=== PATIENT | male | born 1985 | race Caucasian/White ===

== ENCOUNTER → 2016-08-04 | Outpatient (CLI) | payer OTHER, BC ==
[~2016-08-04] MED LIST: AMOX875T3 PO; OPTIRAY 320 IV PRN; OXYC1TAB3 PO
--- NOTE | 2016-08-04 11:42 | DIAGNOSTIC IMAGING REPORT ---
CT ABD WITH IV CONTRAST ONLY (CT) CT DOSE: 152.14 mGy.cm CLINICAL HISTORY: Abdominal trauma. Evaluate for liver laceration. Abdominal pain. TECHNIQUE: The patient was scanned following administration of dilute oral contrast, and in a dynamic helical fashion during intravenous administration of water 20 cc of Optiray 320. COMPARISON STUDY: March 2010 FINDINGS: Visualized portions of the lung bases are unremarkable. There is no free intraperitoneal air. There is a 7 mm subcutaneous capsular hypodensity within the right hepatic lobe. This was not visualized previously. There is no adjacent hemorrhage. The liver appears otherwise unremarkable. No gallbladder abnormalities are visualized. The spleen appears normal. No pancreatic masses are visualized. No adrenal masses are visualized. No renal masses are visualized. Both kidneys enhance are normal fashion. There is no upper abdominal ascites. IMPRESSION: 1. Interval development of a 6 mm subcapsular hypodensity within the right hepatic lobe posterolaterally. As there is no adjacent subcapsular hematoma, this lesion is unlikely to represent the sequela of acute trauma. If the patient has persistent right-sided abdominal pain, a follow-up CT scan in 12 to 24 hours could be] obtained in follow-up. 2. Otherwise unremarkable CT scan of the upper abdomen. Electronically signed by: Manoj Brandon M.D. 08/04/2016 11:40 AM
--- NOTE | 2016-08-05 09:35 | CODING QUERY NO DIAGNOSIS ---
: 1985 TREATMENT RENDERED WITHOUT A DIAGNOSIS To promote full compliance with coding requirements relating to patient care, physician participation is requested in all cases of credit review analyst uncertainty. Please assist us with providing a diagnosis/symptom for the test(s) below: A diagnosis/symptom was not documented on your Order. A valid diagnosis/symptom is required to bill all insurances. Please remember that we are unable to code a diagnosis of rule out, probable, possible, questionable, or suspected. Tests that require a diagnosis: DOS: 08/04/16 * Upper Abdominal CT with Contrast DIAGNOSIS: Provider Signature: Date: Thank you Argenis Vazquez Health Information Management Once completed, please kindly fax back to [phone] For questions please call [phone]
== END | disposition home or self-care (01) ==
LOC: C.CTS 11:09
PROVIDERS: ATTEND Emergency Medicine
DX: R10.30 Lower abdominal pain, unspecified (principal); K76.89 Other specified diseases of liver

== ENCOUNTER 2016-08-05 08:24 | Emergency (ER) | payer OTHER, BC ==
[~2016-08-05] VITALS: Ht 162.6 cm; Wt 51.8 kg
[2016-08-05 08:32] VITALS: TEMP 36.7; Ht 162.6 cm; Wt 51.8 kg
--- NOTE | 2016-08-05 08:48 | EMERGENCY ROOM VISIT NOTE ---
History Report prepared by Shruthi: Gualberto Lang Under the Supervision of: Carolina MartellO. First contact with patient: 08:38 Chief Complaint: ABDOMINAL PAIN Stated Complaint: RIB ADOMINAL PAIN Nursing Triage Summary: Right sided abd pain. Denies n/v/d States fell on the 3rd and has been having pain since. History of Present Illness The patient is a 31 year old male who presents to the Emergency Room with complaints of worsening right-sided abdominal pain that started 2 days ago after he fell at work. The patient says that he tripped on steps and fell with his phone underneath him. The phone went into his right ribs. He has been having this pain ever since. The patient had a CT scan with his primary care physician yesterday, and it was found that the patient has a cyst near his liver but he was not bleeding. The physician told the patient to follow up here in the ED for another CT scan. The patient denies any chest pain, shortness of breath, back pain, or leg pain. He does not take any medications daily. He has not had any surgeries. The patient does not use any tobacco or alcohol products. Source of History: patient Onset: 2 days ago Position: abdomen (right sided) Timing: worsening Associated Symptoms: No SOB, No back pain, No chest pain Note: Associated symptoms: Denies any leg pain. Review of Systems See HPI for pertinent positives & negatives. A total of 10 systems reviewed and were otherwise negative. Past Medical & Surgical Medical Problems: (1) Acute pharyngitis (2) Calculus of ureter (3) Hypertension Family History Digestive disorder Social History Smoking Status: Never Smoker Alcohol Use: none Marital Status: Housing Status: lives with family Occupation Status: employed Current/Historical Medications Scheduled PRN Oxycodone Immediate Rel Tab (Roxicodone Ir), 1-2 TAB PO Q4H PRN for Severe Pain Allergies Coded Allergies: No Known Allergies (Unverified , 08/04/16) Physical Exam Vital Signs Date Time Temp Pulse Resp B/P Pulse Ox O2 Delivery O2 Flow Rate FiO2 08/05/16 11:10 70 13 114/80 99 08/05/16 10:25 80 15 116/66 100 Room Air 08/05/16 08:32 36.7 93 16 115/64 97 Room Air Physical Exam GENERAL: Patient is awake, alert, and in no acute distress. Patient is resting comfortably and showing no signs of anxiety EYES: The conjunctivae are clear. The pupils are round and reactive. EARS, NOSE, MOUTH AND THROAT: The nose is without any evidence of any deformity. Mucous membranes are moist tongue is midline NECK: The neck is nontender and supple. RESPIRATORY: Normal respiratory effort is noted there is no evidence of wheezing rhonchi or rales CARDIOVASCULAR: Regular rate and rhythm noted there no murmurs rubs or gallops normal S1 normal S2 GASTROINTESTINAL: The abdomen is nondistended. There was significant tenderness to palpation in the right upper quadrant. Mild guarding noted in right upper quadrant. BACK: No midline tenderness or or step-off noted range of motion in flexion extension as well as rotation no signs of muscle spasm noted MUSCULOSKELETAL/EXTREMITIES: There is no evidence of gross deformity full range of motion is noted in the hips and shoulders SKIN: There is no obvious evidence of any rash. There are no petechiae, pallor or cyanosis noted. NEUROLOGIC: Patient is awake alert and oriented x3. Medical Decision & Procedures ER Provider Diagnostic Interpretation: CT results as stated below per my review and radiologist interpretation. ABDOMEN AND PELVIS CT WITH IV CONTRAST CT DOSE: 211.16 mGycm HISTORY: Right upper quadrant pain with trauma. TECHNIQUE: Multiaxial CT images of the abdomen and pelvis were performed following the use of intravenous contrast. COMPARISON STUDY: Abdomen and pelvis CT 08/04/2016. FINDINGS: The lung bases are clear. No pneumoperitoneum. No pneumatosis. No fractures within the visualized osseous structures. Stable 6 mm peripheral hypodense lesion within segment 7 of the liver. There is no adjacent subcapsular hematoma. The remaining portions of the liver enhanced normally. The gallbladder, spleen, adrenal glands, and pancreas are unremarkable. No hydronephrosis. No retroperitoneal lymphadenopathy. No pelvic free fluid. Normal bladder. No bowel wall thickening or obstruction. Normal appendix. IMPRESSION: 1. No significant change compared to the prior study. 2. Stable 6 mm peripheral hypodense focus within the posterior segment of the right hepatic lobe. No adjacent subcapsular hematoma. Therefore, this favors a hypodense hepatic lesion rather than a laceration. A follow-up ultrasound can be performed to ensure stability if the patient's symptoms continue to progress. Electronically signed by: Mario Ureña M.D 08/05/2016 10:07 AM Laboratory Results 08/05/16 08:50 Red Blood Count 5.11, Mean Corpuscular Volume 88.6, Mean Corpuscular Hemoglobin 30.3, Mean Corpuscular Hemoglobin Concent 34.2, Mean Platelet Volume 9.8, Neutrophils (%) (Auto) 63.8, Lymphocytes (%) (Auto) 24.8, Monocytes (%) (Auto) 9.4, Eosinophils (%) (Auto) 1.2, Basophils (%) (Auto) 0.6, Neutrophils # (Auto) 3.28, Lymphocytes # (Auto) 1.27, Monocytes # (Auto) 0.48, Eosinophils # (Auto) 0.06, Basophils # (Auto) 0.03 08/05/16 08:50 Test 08/05/16 08:50 White Blood Count 5.13 K/uL (4.8-10.8) Red Blood Count 5.11 M/uL (4.7-6.1) Hemoglobin 15.5 g/dL (14.0-18.0) Hematocrit 45.3 % (42-52) Mean Corpuscular Volume 88.6 fL (80-100) Mean Corpuscular Hemoglobin 30.3 pg (25-34) Mean Corpuscular Hemoglobin Concent 34.2 g/dl (32-36) Platelet Count 221 K/uL (130-400) Mean Platelet Volume 9.8 fL (7.4-10.4) Neutrophils (%) (Auto) 63.8 % Lymphocytes (%) (Auto) 24.8 % Monocytes (%) (Auto) 9.4 % Eosinophils (%) (Auto) 1.2 % Basophils (%) (Auto) 0.6 % Neutrophils # (Auto) 3.28 K/uL (1.4-6.5) Lymphocytes # (Auto) 1.27 K/uL (1.2-3.4) Monocytes # (Auto) 0.48 K/uL (0.11-0.59) Eosinophils # (Auto) 0.06 K/uL (0-0.5) Basophils # (Auto) 0.03 K/uL (0-0.2) RDW Standard Deviation 43.7 fL (36.4-46.3) RDW Coefficient of Variation 13.3 % (11.5-14.5) Immature Granulocyte % (Auto) 0.2 % Immature Granulocyte # (Auto) 0.01 K/uL (0.00-0.02) Urine Color YELLOW Urine Appearance CLEAR (CLEAR) Urine pH 5.5 (4.5-7.5) Urine Specific [place] 1.023 (1.000-1.030) Urine Protein NEG (NEG) Urine Glucose (UA) NEG (NEG) Urine Ketones NEG (NEG) Urine Occult Blood NEG (NEG) Urine Nitrite NEG (NEG) Urine Bilirubin NEG (NEG) Urine Urobilinogen NEG (NEG) Urine Leukocyte Esterase NEG (NEG) Anion Gap 9.0 mmol/L (3-11) Est Creatinine Clear Calc Drug Dose 83.2 ml/min Estimated GFR () 123.3 Estimated GFR (Non- 106.4 BUN/Creatinine Ratio 12.7 (10-20) Calcium Level 9.0 mg/dl (8.5-10.1) Total Bilirubin 2.8 mg/dl (0.2-1) Direct Bilirubin 0.1 mg/dl (0-0.2) Aspartate Amino Transf (AST/SGOT) 27 U/L (15-37) Alanine Aminotransferase (ALT/SGPT) 39 U/L (12-78) Alkaline Phosphatase 74 U/L (45-117) Total Protein 7.6 gm/dl (6.4-8.2) Albumin 4.3 gm/dl (3.4-5.0) Lipase 142 U/L (73-393) Laboratory results per my review. ED Course 0839: The patient was evaluated in room A12B. A complete history and physical examination were performed. 1047: I reevaluated the patient and he is resting comfortably. The patient verbally expressed understanding and agreement of the treatment plan. The patient will be discharged. Medical Decision The patient's history was concerning for traumatic injury Differential diagnosis: Etiologies such as fracture, dislocation, intra-abdominal, pneumothorax, intrathoracic , intracranial, neurologic, as well as other traumatic pathologies were entertained. Nursing notes reviewed. The patient's previous electronic medical records were also reviewed. The patient is a 31-year-old male who presented to the emergency department for an evaluation of right upper abdominal pain. The patient had a fall recently where he landed on his phone and hurt his right upper quadrant. The patient was seen by his primary care physician and had a CAT scan of the abdomen and pelvis ordered. The CAT scan shows some abnormality around the liver but it did not appear to be completely consistent with intra-abdominal bleeding. The patient was seen in the ER and was told to return to the emergency department if his symptoms worsened otherwise follow-up with his family doctor. Pain worsened overnight and the patient presented to the emergency department today. A repeat CAT scan showed no change from the previous CAT scan. At this time I do feel the patient's condition is more likely consistent with abdominal wall contusion. He was encouraged to rest and avoid any strenuous activity. He was encouraged to continue all medications as prescribed. He was encouraged to follow-up with his family doctor for reevaluation but return to the emergency department immediately if symptoms change worsen or the need arises. Otherwise he was encouraged to have an ultrasound of his right upper quadrant to follow the abnormality that was noted on CAT scan. Impression Primary Impression: Blunt abdominal trauma Scribe Attestation The scribe's documentation has been prepared under my direction and personally reviewed by me in its entirety. I confirm that the note above accurately reflects all work, treatment, procedures, and medical decision making performed by me. Departure Information Dispostion Home / Self-Care Prescriptions Oxycodone Immediate Rel Tab (ROXICODONE IR) 5 Mg Tab 1-2 TAB PO Q4H Y for Severe Pain, #24 TAB Prov: West Brown, DO 08/05/16 Referrals No Doctor, Assigned (PCP) Forms HOME CARE DOCUMENTATION FORM, IMPORTANT VISIT INFORMATION, My [facility], Work Instructions Patient Instructions A Signature Page, ED Abd Injury Blunt Benign Additional Instructions Call your family to schedule a follow-up appointment. Rest and avoid any strenuous activity. Continue using Motrin and Tylenol as directed for mild pain.
[2016-08-05] MEDS ORDERED: OPTIRAY 320 IV PRN (09:00)
[2016-08-05 09:02] LABS: BASO % 0.6 %; BASO ABS # 0.03 K/uL (0-0.2); COMPLETE YES; EOS % 1.2 %; HEMATOCRIT 45.3 % (42-52); IG% 0.2 %; LYMPH % 24.8 %; LYMPH ABS # 1.27 K/uL (1.2-3.4); MEAN CELL VOLUME 88.6 fL (80-100); MEAN CORPUSCULAR HEMOGLOBIN 30.3 pg (25-34); MEAN CORPUSCULAR HGB CONC 34.2 g/dl (32-36); MEAN PLATELET VOLUME 9.8 fL (7.4-10.4); MONO % 9.4 %; NEUT % 63.8 %; PLATELET COUNT 221 K/uL (130-400); RED BLOOD COUNT 5.11 M/uL (4.7-6.1); WHITE BLOOD COUNT 5.13 K/uL (4.8-10.8)
[2016-08-05 09:17] LABS: URINE APPEARANCE CLEAR (CLEAR); URINE BILIRUBIN NEG (NEG); URINE COLOR YELLOW; URINE NITRITE NEG (NEG); URINE PH 5.5 (4.5-7.5); URINE SPECIFIC GRAVITY 1.023 (1.000-1.030); UROBILINOGEN NEG (NEG)
[2016-08-05 09:24] LABS: BUN/CREATININE RATIO 12.7 (10-20); CREATININE 0.96 mg/dl (0.60-1.40); POTASSIUM 4.1 mmol/L (3.5-5.1)
[2016-08-05 09:29] LABS: MANUAL MICROSCOPIC REQUIRED? NO; REVIEW REQ? NO
--- NOTE | 2016-08-05 10:08 | DIAGNOSTIC IMAGING REPORT ---
ABDOMEN AND PELVIS CT WITH IV CONTRAST CT DOSE: 211.16 mGycm HISTORY: Right upper quadrant pain with trauma. TECHNIQUE: Multiaxial CT images of the abdomen and pelvis were performed following the use of intravenous contrast. COMPARISON STUDY: Abdomen and pelvis CT 08/04/2016. FINDINGS: The lung bases are clear. No pneumoperitoneum. No pneumatosis. No fractures within the visualized osseous structures. Stable 6 mm peripheral hypodense lesion within segment 7 of the liver. There is no adjacent subcapsular hematoma. The remaining portions of the liver enhanced normally. The gallbladder, spleen, adrenal glands, and pancreas are unremarkable. No hydronephrosis. No retroperitoneal lymphadenopathy. No pelvic free fluid. Normal bladder. No bowel wall thickening or obstruction. Normal appendix. IMPRESSION: 1. No significant change compared to the prior study. 2. Stable 6 mm peripheral hypodense focus within the posterior segment of the right hepatic lobe. No adjacent subcapsular hematoma. Therefore, this favors a hypodense hepatic lesion rather than a laceration. A follow-up ultrasound can be performed to ensure stability if the patient's symptoms continue to progress. Electronically signed by: Mario Ureña M.D. 08/05/2016 10:07 AM
[2016-08-05] MEDS ORDERED: OXYC1TAB3 PO (10:59)
[2016-08-05 11:10] VITALS: BP 114/80; PULSE 70; O2SAT 99
== END 2016-08-05 11:12 | disposition home or self-care (01) ==
LOC: C.EDB 08:26 → C.EDA 11:12
DX: S39.91XA Unspecified injury of abdomen, initial encounter (principal); W10.9XXA Fall (on) (from) unspecified stairs and steps, initial encounter; Y99.0 Civilian activity done for income or pay; R93.2 Abnormal findings on diagnostic imaging of liver and biliary tract

== ENCOUNTER 2024-07-03 11:09 | Observation (INO) ==
[2024-07-03 12:08] LABS: Basophils # (auto) 0.05 K/uL (0.00-0.20); Basophils % (auto) 0.4 %; Eosinophils # (auto) 0.01 K/uL (0.00-0.50); Eosinophils % (auto) 0.1 %; Hematocrit (blood only) 50.1 % (42.0-52.0); Hemoglobin 16.6 g/dl (14.0-18.0); Immature Granulocytes # (auto) 0.41 K/uL (0.01-0.20); Immature Granulocytes % (auto) 3.4 %; Lymphocytes # (auto) 0.92 K/uL (1.20-3.40); Lymphocytes % (auto) 7.7 %; Mean Corpuscular Hemoglobin 29.4 pg (25.0-34.0); Mean Corpuscular Hgb Conc 33.1 g/dL (32.0-36.0); Mean Corpuscular Volume 88.8 fL (80.0-100.0); Mean Platelet Volume 9.8 fL (9.4-12.4); Monocytes # (auto) 0.61 K/uL (0.11-0.59); Monocytes % (auto) 5.1 %; Neutrophils # (auto) 9.97 K/uL (1.40-6.50); Neutrophils % (auto) 83.3 %; Platelet Count 273 K/uL (130-400); RDW Coefficient of Variation 13.1 % (11.5-14.5); RDW Standard Deviation 42.4 fL (36.4-46.3); Red Blood Count 5.64 M/uL (4.70-6.10); White Blood Count 11.97 K/ul (4.8-10.8)
[2024-07-03 12:27] LABS: Albumin Globulin Ratio 1.9 (0.9-2); Albumin Level 4.9 gm/dl (3.4-5.0); BUN Creatinine Ratio 14.1 (10-20); Bilirubin,Total 1.6 mg/dl (0.2-1.0); Calcium 9.6 mg/dl (8.6-10.3); Creatinine Clr Calc Pharmacy 85.8 ml/min; Globulin 2.6 gm/dl (2.5-4.0); Potassium 3.9 mmol/L (3.5-5.1); Total Protein 7.5 gm/dl (6.0-8.3)
--- NOTE | 2024-07-03 12:47 | XRay Report ---
XR chest 1V not portable CLINICAL HISTORY: Cough. COMPARISON STUDY: Chest radiograph June 02, 2017. FINDINGS: Lung volumes are normal. Lungs are clear. There is no pneumothorax or pleural effusion. Car diac size is normal. Mediastinal contours are normal. There is no evidence for pulmonary edema. IMPRESSION: No acute cardiopulmonary findings. ACT 112: Negative or not required by law. Electronically signed by: Robert Torre M.D. 07/03/2024 12:46 PM
[2024-07-03 12:54] LABS: Adenovirus PCR Not Detected (NotDetected); Bordetella parapertussis PCR Not Detected (NotDetected); Bordetella pertussis PCR Not Detected (NotDetected); Chlamydia pneumoniae PCR Not Detected (NotDetected); Coronavirus 229E PCR Not Detected (NotDetected); Coronavirus CoV-2 (COVID19)PCR Not Detected (NotDetected); Coronavirus HKU1 PCR Not Detected (NotDetected); Coronavirus NL63 PCR Not Detected (NotDetected); Coronavirus OC43PCR Not Detected (NotDetected); Human Metapneumovirus PCR Not Detected (NotDetected); Influenza A PCR Not Detected (NotDetected); Influenza B PCR Not Detected (NotDetected); Mycoplasma pneumoniae PCR Not Detected (NotDetected); Parainfluenza Virus 1 PCR Not Detected (NotDetected); Parainfluenza Virus 2 PCR Not Detected (NotDetected); Parainfluenza Virus 3 PCR Not Detected (NotDetected); Parainfluenza Virus 4 PCR Not Detected (NotDetected); Respiratory Syncytial VirusPCR Not Detected (NotDetected); Rhinovirus/Enterovirus PCR Not Detected (NotDetected)
--- NOTE | 2024-07-03 13:06 | Emergency Department Note ---
Impression & Plan SOB (shortness of breath), Wheezing, Cough ED Provider Note CHIEF COMPLAINT: Pneumonia HISTORY OF PRESENTING ILLNESS: This 39-year-old male patient presents to the emergency department for admission due to ongoing pneumonia and cough for the past 3 weeks. The patient states that he was clinically diagnosed with pneumonia, but no outpatient CXR. He was treated with Zithromax, Amoxicillin, and then a Medrol Dosepak and albuterol without improvement of his symptoms. The patient states that he continues with a dry and constant reflexive cough. Finds it hard to take a deep breath at times. The patient was referred by his PCP at [facility] for admission due to failing outpatient treatment. He is not having any fevers. However, he is having a lot of central chest pain and SOB. Very hard to take a deep breath in. Has never had asthma or wheezing in the past. Denies abdominal pain or nausea, but has had some post-tussive emesis at times. His epididymitis resolved with antibiotics and his kidney stone pain resolved. He followed up with urology with no further recommendations unless he had continued symptoms. The patient was seen in the emergency department on 06/12/2024 for right-sided epididymitis and kidney stones. The patient had a 5 mm left UPJ stone without hydronephrosis on CT scan of the abdomen pelvis. Testicular ultrasound showed enlarged and hypervascular right epididymis suggesting epididymitis. The patient was already on levofloxacin by his PCP and this was continued. The patient had also been given a prescription for Flomax and Oxy IR for the kidney stone. The patient was then seen at the [facility] on 06/20/2024 and diagnosed with bronchitis. The patient was started on albuterol and a Medrol Dosepak. I do not have access to the patient's outpatient office visit through [facility] today. However, his provider called in speaking with ER staff stating that the patient has failed 2 outpatient antibiotics and steroids and admission was recommended. REVIEW OF SYSTEMS: See HPI for pertinent positives and pertinent negatives. ALLERGIES: NKDA MEDICATIONS: See below PAST MEDICAL HISTORY: See below PHYSICAL EXAM: VITALS: Vitals are noted on the nurse's note and reviewed by myself. GENERAL: Non toxic, in no acute distress, non-diaphoretic. SKIN: Capillary refill <2 sec. EYES: PERRLA. EOMI. Conjunctivae without injection, sclerae without icterus. NOSE: Patent without discharge. MOUTH: Mucous membranes moist. Uvula midline. Airway patent. NECK: Supple without nuchal rigidity. HEART: Regular rate and rhythm without murmurs gallops or rubs. LUNGS: Clear to auscultation bilaterally with diffuse wheezing throughout without rales or rhonchi. The patient also has a reflexive cough. No retractions or accessory muscle use. ABDOMEN: Positive bowel sounds x 4. Normal tympanic percussion. Soft, nontender to palpation. No masses or hepatosplenomegaly. Resendiz sign negative. No CVA tenderness. No guarding, rigidity, or rebound tenderness. No focal RLQ or LLQ tenderness. MUSCULOSKELETAL: No gross musculoskeletal defects. Bilateral calves are nontender to palpation. No erythema, edema, warmth, or cording of the bilateral lower extremities. Peripheral pulses 2+ and equal. NEURO: Patient was alert and oriented. No focal neurological deficits. DIFFERENTIAL DIAGNOSIS: Differential diagnosis includes angina, NH, pericarditis, myocarditis, aortic dissection, pleurisy, pneumothorax, PE, pneumonia, pneumomediastinum, esophagitis, esophageal spasm, GERD, perforated esophagus, perforated duodenal/gastric ulcer, pancreatitis, cholecystitis, costochondritis, musculoskeletal, bronchitis, URI, or others. ED COURSE AND MEDICAL DECISION MAKING: MEDICATIONS GIVEN: Singular DuoNeb treatment. Decadron 10 mg IV. Normal saline solution 500 mL IV. Tylenol 1000 mg IV. Hour-long DuoNeb treatment. MONITOR: Continuous child monitor: Order was placed for continuous child monitor. Patient was placed on the child monitor and continuous pulse ox. Patient was noted to be in normal sinus rhythm at an initial rate of 98 bpm per my interpretation. EKG: EKG was interpreted by myself as sinus tachycardia at 102 bpm with nonspecific T wave abnormality, but no ischemic changes. The patient stated that he was very nervous during this EKG and was moving around a lot. Repeat EKG showed normal sinus rhythm at 88 bpm with no acute ST or T wave changes. INTERPRETATION OF LABS: I interpreted the labs with full lab results as below in the lab section of this note. Pertinent lab results discussed in the MDM section below. INTERPRETATION OF IMAGING: Imaging studies were interpreted by myself and read by radiology as per the imaging section of this note. Chest x-ray negative for acute cardiopulmonary etiology. CTA of the chest with IV contrast showed no evidence for PE or pneumonia. There is a healing nondisplaced anterior left fourth rib fracture which is likely subacute. No pneumothorax. EXTERNAL RECORDS REVIEWED: I reviewed the patient's outpatient office visit records as summarized above. CONSULTATIONS: On-call hospitalist MDM SUMMARY: The patient was seen during a time of extreme volume and extreme acuity. Nursing triage protocols were initiated with IV lock, labs, and/or imaging studies conducted by protocol in the triage area. The patient was initially evaluated in a triage room and then re-evaluated once they were taken back to an exam room. The patient was referred to the ER by his PCP for admission for clinical pneumonia with continued symptoms after failing 2 rounds of antibiotics and steroids along with an albuterol inhaler. The patient has had a continuous cough for the past 3 weeks. He had been treated with Zithromax, amoxicillin, a Medrol Dosepak, and albuterol without any change in his symptoms. The patient was given 500 mL of normal saline solution bolus, Tylenol 1000 mg IV, Decadron 10 mg IV, and a DuoNeb treatment for his wheezing on exam. However, the patient persisted with wheezing and he was given an hour-long nebulizer treatment. White blood cell count elevated 11.97. Hemoglobin normal at 16.6. Platelet count normal at 273. Coags were normal. VBG normal. Glucose 117 and total bilirubin stable at 1.6, but CMP otherwise normal. Magnesium normal. High- sensitivity troponin normal. Respiratory BioFire was negative. Chest x-ray negative for acute cardiopulmonary etiology. CTA of the chest with IV contrast showed no evidence for PE or pneumonia. There is a healing nondisplaced anterior left fourth rib fracture which is likely subacute. No pneumothorax. The patient states that he did have an injury to the left side of his chest just prior to his cough starting, but he did not think much of it. This may have been when he developed the rib fracture. The patient had persistent wheezing and cough despite the above initial treatment, but his breathing did improve after the hour-long nebulizer treatment. Although the patient does not have pneumonia on imaging studies, the patient continues with shortness of breath and difficulty breathing. I spoke with the on-call hospitalist who evaluated the patient and agreed to admit the patient for further evaluation and treatment. Please refer to their dictation for further details. The patient's care was transferred in stable condition. DIAGNOSIS: Shortness of breath Wheezing Persisting cough Past Med/Surg History Problem List (Updated 07/03/24 @ 23:09 by La Nena Combs PA-C) Cough (Acute) Wheezing (Acute) SOB (shortness of breath) (Acute) Bronchitis Productive cough Tachycardia Recurrent nephrolithiasis Vitamin D deficiency Encounter for vasectomy Acute right flank pain (Acute) Ureterolithiasis (Acute) Hydronephrosis due to obstruction of ureter (Acute) No significant past surgical history Encounter for pre-operative examination Vomiting (Acute) Substernal chest pain (Acute) Anxiety (Acute) Acute flank pain Medical History Strep throat Anxiety History of COVID-19 Nephrolithiasis Calculus of right ureter Hypertension Surgical History S/P cystoscopy with ureteral stent placement Family History Other Family history non-contributory Social History Smoking Status: Never smoker Tobacco Type: Cigarettes Second Hand Exposure: Yes; Do You Dip or Chew Tobacco: No; Hx Alcohol Use: No Hx Substance Use: No Preferred Language: Guamanian Communication Ability: Effective Visual Impairment: No Limitations Hearing Ability: Normal Executive Recruiter Required: No Beliefs That Will Affect Care: None marital status: Single Current Living Situation: Family Current Living Situation Comment: Patient lives in a house with Father and Son current occupational status: employed current occupation: catering at [employer] How many Children do You have: 2 Other Information That Helps Us Care for You: No Feels Safe at Home: Yes Safety Concerns: Feels Safe At This Time Diet: regular caffeine: Yes (1 soda daily) Dental Care, Regularly: Yes Physical Activity Frequency: 3-4 Times per Week Seatbelt Use: always Do you think of yourself as: straight/heterosexual Gender Identity: Male Assistive Devices: Glasses Allergies Allergies Allergy/AdvReac Type Severity Reaction Status Date / Time No Known Allergies Allergy Verified 07/03/24 15:59 Home Meds Home Medications Medication Instructions Recorded Confirmed ascorbic acid (vitamin C) 500 mg 500 mg PO DAILY PRN Feeling 10/11/23 07/03/24 tablet (Vitamin C) sick/cold ibuprofen 200 mg tablet 200 mg PO Q6H PRN Pain 10/11/23 07/03/24 albuterol sulfate 90 mcg/actuation 2 puff inhalation UD PRN shortness 07/03/24 07/03/24 aerosol inhaler of breath or wheezing amoxicillin 875 mg-potassium 1 tab PO BID 07/03/24 07/03/24 clavulanate 125 mg tablet prednisone 10 mg tablet See Rx Instructions .Route .COMPLEX 07/03/24 07/03/24 Results & Data (ED) Vital Signs Vital Signs - 24 hr 07/03/24 11:13 07/03/24 13:52 07/03/24 15:13 Temperature 36.8 C Temperature Source Temporal Artery Scan Pulse Rate 106 H Pulse Rate [Right Finger] 95 H 91 H Pulse Rhythm [Right Finger] Regular Pulse Strength [Right Finger] Normal Respiratory Rate 20 18 18 Respiratory Effort / Characteristics Non-Labored Spontaneous Non-Labored Spontaneous Respiratory Depth Normal Normal Respiratory Pattern Regular Blood Pressure 140/87 Blood Pressure [Right Arm] 139/109 H 128/103 H Blood Pressure Mean 104 Blood Pressure Mean [Right Arm] 119 111 Blood Pressure Position Sitting Blood Pressure Position [Right Arm] Sitting Pulse Oximetry 100 96 96 Oxygen Delivery Method Room Air Room Air Room Air Sepsis Recent Fever Within 48 Hours No Sepsis New/Unexplained Change in Mental Status No Sepsis Action Taken by Nursing No Action Required 07/03/24 15:15 Temperature Temperature Source Pulse Rate Pulse Rate [Right Finger] 88 Pulse Rhythm [Right Finger] Pulse Strength [Right Finger] Respiratory Rate 18 Respiratory Effort / Characteristics Non-Labored Spontaneous Respiratory Depth Respiratory Pattern Blood Pressure Blood Pressure [Right Arm] Blood Pressure Mean Blood Pressure Mean [Right Arm] Blood Pressure Position Blood Pressure Position [Right Arm] Pulse Oximetry 99 Oxygen Delivery Method Room Air Sepsis Recent Fever Within 48 Hours Sepsis New/Unexplained Change in Mental Status Sepsis Action Taken by Nursing Laboratory Data 07/03/24 11:19 07/03/24 11:19 Lab Results 07/03/24 07/03/24 Range/Units 11:19 15:01 WBC 11.97 H (4.8-10.8) K/ul RBC 5.64 (4.70-6.10) M/uL Hgb 16.6 (14.0-18.0) g/dl Hct 50.1 (42.0-52.0) % MCV 88.8 (80.0-100.0) fL MCH 29.4 (25.0-34.0) pg MCHC 33.1 (32.0-36.0) g/dL RDW Std Deviation 42.4 (36.4-46.3) fL RDW Coeff of Geraldine 13.1 (11.5-14.5) % Plt Count 273 (130-400) K/uL MPV 9.8 (9.4-12.4) fL Immature Gran % (Auto) 3.4 % Neut % (Auto) 83.3 % Lymph % (Auto) 7.7 % Harper % (Auto) 5.1 % Eos % (Auto) 0.1 % Baso % (Auto) 0.4 % Neut # (Auto) 9.97 H (1.40-6.50) K/uL Lymph # (Auto) 0.92 L (1.20-3.40) K/uL Harper # (Auto) 0.61 H (0.11-0.59) K/uL Eos # (Auto) 0.01 (0.00-0.50) K/uL Baso # (Auto) 0.05 (0.00-0.20) K/uL Immature Gran # (Auto) 0.41 H (0.01-0.20) K/uL PT 10.5 (9.0-12.0) Seconds INR 1.0 (0.9-1.1) APTT 27 (21-31) Seconds PTT Ratio 1.0 VBG pH 7.38 (7.36-7.41) VBG pCO2 42 (38-50) mmHg VBG pO2 49 mmHg VBG HCO3 25 mmol/L VBG O2 Saturation 83.2 % VBG Base Excess -0.4 mEq/L Sodium 137 (136-145) mmol/L Potassium 3.9 (3.5-5.1) mmol/L Chloride 101 (98-107) mmol/L Carbon Dioxide 27 (21-32) mmol/L Anion Gap 9 (3-11) BUN 14 (6-23) mg/dl Creatinine 0.99 (0.6-1.4) mg/dl Est Cr Clr Drug Dosing 85.8 ml/min eGFR 100.62 BUN/Creatinine Ratio 14.1 (10-20) Glucose 117 H (70-99(Fasting)) mg/dl Calcium 9.6 (8.6-10.3) mg/dl Magnesium 2.1 (1.7-2.4) mg/dl Total Bilirubin 1.6 H (0.2-1.0) mg/dl AST 21 (13-39) U/L ALT 22 (7-52) U/L Alkaline Phosphatase 76 (34-104) U/L Troponin I High Sens 4.3 (0-20) pg/ml Total Protein 7.5 (6.0-8.3) gm/dl Albumin 4.9 (3.4-5.0) gm/dl Globulin 2.6 (2.5-4.0) gm/dl Albumin/Globulin Ratio 1.9 (0.9-2) Adenovirus (PCR) Not Detected (NotDetected) B. pertussis DNA (PCR) Not Detected (NotDetected) B.parapertussis DNA PCR Not Detected (NotDetected) C. pneumoniae DNA (PCR) Not Detected (NotDetected) Coronavirus OC43 (PCR) Not Detected (NotDetected) Coronavirus HKU1 (PCR) Not Detected (NotDetected) Coronavirus 229E (PCR) Not Detected (NotDetected) SARS-CoV-2 (PCR) Not Detected (NotDetected) Coronavirus NL63 (PCR) Not Detected (NotDetected) Human Metapneumovir PCR Not Detected (NotDetected) Influenza Type A (PCR) Not Detected (NotDetected) Influenza Type B (PCR) Not Detected (NotDetected) M. pneumoniae (PCR) Not Detected (NotDetected) Parainfluenza 1 (PCR) Not Detected (NotDetected) Parainfluenza 2 (PCR) Not Detected (NotDetected) Parainfluenza 3 (PCR) Not Detected (NotDetected) Parainfluenza 4 (PCR) Not Detected (NotDetected) RSV (PCR) Not Detected (NotDetected) Entero/Rhino (PCR) Not Detected (NotDetected) Administered Medications Acetaminophen (Acetaminophen 325 Mg Tab) 650 mg PO Q4H PRN PRN Reason: Pain or Fever Stop: 08/02/24 18:59 Last Admin: 07/03/24 22:17 Dose: 650 mg Documented By: MATTHIEU Albuterol (Albut/Ipratrop 3mg/0.5mg Neb 3 Ml Vial) 3 ml NEB Q4@0700,1100,1500,1900,2300 POOL Stop: 08/02/24 22:59 Last Admin: 07/03/24 22:02 Dose: 3 ml Documented By: PER Discontinued Medications Albuterol (Albut/Ipratrop 3mg/0.5mg Neb 3 Ml Vial) 3 ml NEB NOW STA; Protocol Stop: 07/03/24 13:26 Last Admin: 07/03/24 13:51 Dose: 3 ml Documented By: YULISA Albuterol (Albut/Ipratrop 3mg/0.5mg Neb 3 Ml Vial) 12 ml NEB ONE ONE; Protocol Stop: 07/03/24 14:49 Last Admin: 07/03/24 15:15 Dose: 12 ml Documented By: KAJAL Albuterol (Albut/Ipratrop 3mg/0.5mg Neb 3 Ml Vial) Confirm Administered Dose 3 ml .ROUTE .STK-MED ONE Stop: 07/03/24 21:58 Last Admin: 07/03/24 22:02 Dose: Not Given Documented By: PER Dexamethasone Sodium Phosphate (DexamethasonePf 10 Mg/Ml Vial) 10 mg IV NOW ONE Stop: 07/03/24 13:26 Last Admin: 07/03/24 13:49 Dose: 10 mg Documented By: [facility] Sodium Chloride (Nss) 500 mls @ 999 mls/hr IV .Q31M ONE Stop: 07/03/24 13:55 Last Infusion: 07/03/24 15:37 Dose: Infused Documented By: Admin: 07/03/24 13:46 Dose: 999 mls/hr Documented By: [facility] Acetaminophen (Ofirmev) 1,000 mg in 100 mls @ 400 mls/hr IV NOW STA Stop: 07/03/24 13:39 Last Infusion: 07/03/24 15:14 Dose: Infused Documented By: Admin: 07/03/24 13:49 Dose: 400 mls/hr Documented By: [facility] Ioversol (Optiray 320 125ml) 116 ml IV ONCE ONE Stop: 07/03/24 14:13 Last Admin: 07/03/24 14:13 Dose: 116 ml Documented By: GIUSEPPE Lorazepam (Lorazepam 0.5 Mg Tab) 0.5 mg PO NOW STA Stop: 07/03/24 20:14 Last Admin: 07/03/24 20:19 Dose: 0.5 mg Documented By: BMS Imaging Data Radiologist's Impression: Chest X-Ray 07/03/24 11:15 XR chest 1V not portable CLINICAL HISTORY: Cough. COMPARISON STUDY: Chest radiograph June 02, 2017. FINDINGS: Lung volumes are normal. Lungs are clear. There is no pneumothorax or pleural effusion. Cardiac size is normal. Mediastinal contours are normal. There is no evidence for pulmonary edema. IMPRESSION: No acute cardiopulmonary findings. ACT 112: Negative or not required by law. Electronically signed by: Robert Torre M.D. 07/03/2024 12:46 PM Chest CTA 07/03/24 13:25 CT ANGIOGRAPHY OF THE CHEST, PULMONARY EMBOLUS PROTOCOL CLINICAL HISTORY: Persistent cough. Evaluate for pulmonary embolus or pneumonia. COMPARISON STUDY: Chest radiograph performed earlier today. Chest radiograph June 02, 2017. TECHNIQUE: Following IV administration of 116 mL of Optiray, helical axial images of the chest were obtained utilizing the pulmonary embolus protocol. Maximal intensity projections and sagittal and coronal reformats were viewed on an independent 3D workstation. IV contrast was administered without complication. Automated exposure control was utilized for the study. A dose lowering technique was utilized adhering to the principles of ALARA. CT DOSE: 415.78 mGy.cm FINDINGS: No pulmonary emboli are identified. There is no thoracic aortic dissection. Size of the heart is normal. There is no pericardial effusion. No pneumothorax or pleural effusion is present. There is no consolidation to suggest pneumonia. There is a healing nondisplaced anterior left fourth rib fracture. Visualized portions of the upper abdomen are unremarkable. IMPRESSION: 1. No pulmonary emboli identified. 2. No consolidation to suggest pneumonia. 3. Healing nondisplaced anterior left fourth rib fracture, likely subacute. No pneumothorax. ACT 112: Negative or not required by law. Electronically signed by: Robert Torre M.D. 07/03/2024 2:34 PM Discharge Plan Visit Data Chief Complaint: Flu Like Symptoms Stated Complaint: PNEUMONIA, COUGH, SOB, CONGESTION ED Provider: Ministerio Kwok ED Midlevel Provider: La Nena Combs Discharge Problem: SOB (shortness of breath), Wheezing, Cough Patient Disposition: Admitted As Inpatient Condition: Good Discharge Instructions Interventions: ED Discharge Assessment Last Done: 07/03/24 17:56 Discharge Problem: Cough Qualifiers: Cough type: acute Qualified Code(s): R05.1 - Acute cough
[2024-07-03] MEDS: SODIUM CHLORIDE 0.9% 500 ML IV ONE (13:46)
[2024-07-03] MEDS: ACETAMINOPHEN 1,000 MG/100 ML VIAL IV STA (13:49)
[2024-07-03] MEDS: dexAMETHasone**PF** 10 MG/ML VIAL IV ONE (13:49)
[2024-07-03] MEDS: ALBUT/IPRATROP 3MG/0.5MG NEB 3 ML VIAL NEB STA (13:51)
[2024-07-03 13:56] LABS: Partial Thromboplastin Time 27 Seconds (21-31); Prothrombin Time 10.5 Seconds (9.0-12.0)
[2024-07-03 13:58] LABS: Magnesium 2.1 mg/dl (1.7-2.4)
[2024-07-03 14:06] LABS: Troponin I High Sensitivity 4.3 pg/ml (0-20)
[2024-07-03] MEDS: OPTIRAY 320 125ml IV ONE (14:13)
--- NOTE | 2024-07-03 14:36 | CT Scan Report ---
CT ANGIOGRAPHY OF THE CHEST, PULMONARY EMBOLUS PROTOCOL CLINICAL HISTORY: Persistent cough. Evaluate for pulmonary embolus or pneumonia. COMPARISON STUDY: Chest radiograph performed earlier today. Chest radiograph June 02, 2017. TECHNIQUE: Following IV administration of 116 mL of Optiray, helical axial images of the chest were o btained utilizing the pulmonary embolus protocol. Maximal intensity projections and sagittal and cor onal reformats were viewed on an independent 3D workstation. IV contrast was administered without co mplication. Automated exposure control was utilized for the study. A dose lowering technique was ut ilized adhering to the principles of ALARA. CT DOSE: 415.78 mGy.cm FINDINGS: No pulmonary emboli are identified. There is no thoracic aortic dissection. Size of the he art is normal. There is no pericardial effusion. No pneumothorax or pleural effusion is present. Ther e is no consolidation to suggest pneumonia. There is a healing nondisplaced anterior left fourth rib fracture. Visualized portions of the upper abdomen are unremarkable. IMPRESSION: 1. No pulmonary emboli identified. 2. No consolidation to suggest pneumonia. 3. Healing nondisplaced anterior left fourth rib fracture, likely subacute. No pneumothorax. ACT 112: Negative or not required by law. Electronically signed by: Robert Torre M.D. 07/03/2024 2:34 PM
[2024-07-03 15:13] LABS: Base Excess VBG -0.4 mEq/L; HCO3 VBG 25 mmol/L; Oxygen Saturation VBG 83.2 %; PCO2 VBG 42 mmHg (38-50); PO2 VBG 49 mmHg; pH VBG 7.38 (7.36-7.41)
[2024-07-03] MEDS: ALBUT/IPRATROP 3MG/0.5MG NEB 3 ML VIAL NEB ONE (15:15)
--- NOTE | 2024-07-03 15:47 | History & Physical Report ---
Date of Service July 03, 2024 Assessment & Plan (1) Bronchitis: Plan: Productive cough and raspy breathing x 3 weeks Failure of outpatient antibiotics/steroid taper Completed course of Levaquin, and close to completing course of Augmentin At the end of current steroid taper No h/o COPD or asthma to his knowledge Non-hypoxic on arrival; no reported fevers at home Mild leukocytosis at 11.97, in the setting of recent steroid taper BioFire negative CXR without acute findings Will defer further abx at this time Incentive spirometry, flutter valve Prednisone 40 mg p.o. QAM DuoNeb 3 mL q4h while awake Robitussin 10mL p.o. q6h as needed for cough Continuous pulse oximetry Recommend home neb available upon discharge follow-up with pulmonology (2) Tachycardia: Plan: Sinus tachycardic up to 110-115 BPM on arrival Chest CTA on arrival without pulmonary embolism Troponin WNL Suspect secondary to nebulizer treatment, steroids, and some anxiety about being in the hospital Continuous telemetry monitoring (3) Productive cough: Plan Disposition: Obs - [facility] telemetry Full code Regular diet VTE PPx: Low risk, SCDs History of Present Illness Chief Complaint: Flulike symptoms Primary Care Provider: NO PCP Preet is a 39-year-old male with PMH of anxiety and recurrent nephrolithiasis. He presented on 07/03 at the behest of his PCP for ongoing respiratory symptoms and productive cough. Patient reports that he has had a horrible cough x 3 weeks. He endorses pleuritic chest pain at times secondary to cough. He reports that yesterday, and got worse and that is breathing became "raspy". He has been on multiple antibiotics outpatient: Completed a course of levofloxacin prescribed on 06/10, and close to completing Augmentin prescribed on 06/26 (patient reports he has 2 pills left). He also is at the end of his current steroid taper, and reports that the steroids helped significantly with his respiratory symptoms. He denies SOB at rest or with exertion. No orthopnea. No history of asthma or COPD to his knowledge. He does not have prior history of pulmonary issues. No family history of COPD to his knowledge. He denies smoking, tobacco use, recreational drug use, or recent alcohol use. He does admit he is around some secondhand smoke. 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 He denies any occupational/environmental exposures. Patient has also been using an inhaler at home for his symptoms, which she received 3 weeks ago, but he reports this has not helped. He is also been taking Mucinex on occasion for his cough. His son also has a cough, but not to this extent. Patient is mildly hypertensive at 128/103 at time of admission; non-hypoxic; vitals otherwise stable. ED course: DuoNeb 3 mL DuoNeb 12 mL NSS 500 mL IV Acetaminophen 1000 mg IV Dexamethasone 10 mg IV ROS: Patient endorses dizziness (like the room was spinning; yesterday), mild BERNARDO, productive cough (dark green), and pleuritic CP. Patient denies fever, chills, night-sweats, falls, syncope, lightheadedness, sore throat, runny nose, chest pain at rest, SOB at rest or with exertion, orthopnea, hemoptysis, chest palpitations, abdominal pain, N/V/D, changes in urinary/bowel habits, blood in the urine/stool, or numbness/tingling in the arms of legs. Allergies Allergy/AdvReac Type Severity Reaction Status Date / Time No Known Allergies Allergy Verified 07/03/24 15:59 Home Medications Medication Instructions Recorded Confirmed Type ascorbic acid (vitamin C) 500 mg 500 mg PO DAILY PRN Feeling 10/11/23 07/03/24 History tablet (Vitamin C) sick/cold ibuprofen 200 mg tablet 200 mg PO Q6H PRN Pain 10/11/23 07/03/24 History albuterol sulfate 90 mcg/actuation 2 puff inhalation UD PRN shortness 07/03/24 07/03/24 History aerosol inhaler of breath or wheezing azithromycin 250 mg tablet See Rx Instructions PO .COMPLEX #6 07/04/24 Rx tabs prednisone 10 mg tablet 10 mg PO UD #40 tabs 07/04/24 Rx Past Med/Surg History Problem List (Updated 07/03/24 @ 23:09 by La Nena Combs PA-C) Cough (Acute) Wheezing (Acute) SOB (shortness of breath) (Acute) Bronchitis Productive cough Tachycardia Recurrent nephrolithiasis Vitamin D deficiency Encounter for vasectomy Acute right flank pain (Acute) Ureterolithiasis (Acute) Hydronephrosis due to obstruction of ureter (Acute) No significant past surgical history Encounter for pre-operative examination Vomiting (Acute) Substernal chest pain (Acute) Anxiety (Acute) Acute flank pain Medical History Strep throat Anxiety History of COVID-19 Nephrolithiasis Calculus of right ureter Hypertension Surgical History S/P cystoscopy with ureteral stent placement Family History Other Family history non-contributory Social History Smoking Status: Never smoker Tobacco Type: Cigarettes Second Hand Exposure: Yes; Do You Dip or Chew Tobacco: No; Hx Alcohol Use: No Hx Substance Use: No Preferred Language: Hungarian Communication Ability: Effective Visual Impairment: No Limitations Hearing Ability: Normal Cash Application Clerk Required: No Beliefs That Will Affect Care: None marital status: Single Current Living Situation: Family Current Living Situation Comment: Patient lives in a house with Father and Son current occupational status: employed current occupation: catering at [employer] How many Children do You have: 2 Other Information That Helps Us Care for You: No Feels Safe at Home: Yes Safety Concerns: Feels Safe At This Time Diet: regular caffeine: Yes (1 soda daily) Dental Care, Regularly: Yes Physical Activity Frequency: 3-4 Times per Week Seatbelt Use: always Do you think of yourself as: straight/heterosexual Gender Identity: Male Assistive Devices: Glasses Review of Systems Review of Systems: See HPI above Physical Exam Physical Exam: General: no acute distress; anxious; hacking cough in the room; on nebulizer treatment; pleasant affect; non-toxic appearing; well-nourished; cooperative; SpO2 99% on RA HEENT: normocephalic, atraumatic; no scleral icterus; PERRLA w/ EOMs intact; vision and hearing grossly intact Neck: supple; no lymphadenopathy; trachea midline Skin: warm, dry without signs of tenting; no cyanosis; no rashes, bruising, lesions, or erythema noted CV: chest wall NTP; RR, tachycardic around 115 bpm; S1/S2 normal; no murmurs/rubs/gallops; pulses intact and symmetric at radial, DP, and PT Lungs: no acute respiratory distress; symmetrical chest wall expansion; clear breath sounds across all lung [place] w/o adventitious sounds; no wheezing ABD: Soft, NTP; BS present; no rebound/guarding; no distention MSK: no tics or fasciculations; no edema noted in the LEs b/l, nonerythematous Neuro: A&Ox3; normal mood and affect; fluent speech; no focal deficits; sensation grossly intact in the LEs b/l Results & Data Results & Data Vital Signs (Past 12 Hours) Vital Signs Temp Pulse Pulse Resp BP BP Pulse Ox 07/03/24 15:15 88 18 99 07/03/24 15:13 91 H 18 128/103 H 96 07/03/24 13:52 95 H 18 139/109 H 96 07/03/24 11:13 36.8 C 106 H 20 140/87 100 O2 Del Method 07/03/24 15:15 Room Air 07/03/24 15:13 Room Air 07/03/24 13:52 Room Air 07/03/24 11:13 Room Air Laboratory Results Abnormal lab results 07/03/24 Range/Units 11:19 WBC 11.97 H (4.8-10.8) K/ul Neut # (Auto) 9.97 H (1.40-6.50) K/uL Lymph # (Auto) 0.92 L (1.20-3.40) K/uL [place] # (Auto) 0.61 H (0.11-0.59) K/uL Immature Gran # (Auto) 0.41 H (0.01-0.20) K/uL Glucose 117 H (70-99(Fasting)) mg/dl Total Bilirubin 1.6 H (0.2-1.0) mg/dl Diagnostic Findings Chest X-Ray 07/03/24 11:15 XR chest 1V not portable CLINICAL HISTORY: Cough. COMPARISON STUDY: Chest radiograph June 02, 2017. FINDINGS: Lung volumes are normal. Lungs are clear. There is no pneumothorax or pleural effusion. Cardiac size is normal. Mediastinal contours are normal. There is no evidence for pulmonary edema. IMPRESSION: No acute cardiopulmonary findings. ACT 112: Negative or not required by law. Electronically signed by: Robert Torre M.D. 07/03/2024 12:46 PM Chest CTA 07/03/24 13:25 CT ANGIOGRAPHY OF THE CHEST, PULMONARY EMBOLUS PROTOCOL CLINICAL HISTORY: Persistent cough. Evaluate for pulmonary embolus or pneumonia. COMPARISON STUDY: Chest radiograph performed earlier today. Chest radiograph June 02, 2017. TECHNIQUE: Following IV administration of 116 mL of Optiray, helical axial images of the chest were obtained utilizing the pulmonary embolus protocol. Maximal intensity projections and sagittal and coronal reformats were viewed on an independent 3D workstation. IV contrast was administered without complication. Automated exposure control was utilized for the study. A dose lowering technique was utilized adhering to the principles of ALARA. CT DOSE: 415.78 mGy.cm FINDINGS: No pulmonary emboli are identified. There is no thoracic aortic dissection. Size of the heart is normal. There is no pericardial effusion. No pneumothorax or pleural effusion is present. There is no consolidation to suggest pneumonia. There is a healing nondisplaced anterior left fourth rib fracture. Visualized portions of the upper abdomen are unremarkable. IMPRESSION: 1. No pulmonary emboli identified. 2. No consolidation to suggest pneumonia. 3. Healing nondisplaced anterior left fourth rib fracture, likely subacute. No pneumothorax. ACT 112: Negative or not required by law. Electronically signed by: Robert Torre M.D. 07/03/2024 2:34 PM ECG Additional Comments: ECG revealed NSR with sinus arrhythmia at 88 bpm; QTc 392 Code Status & VTE Plan Code Status Full code VTE Prophylaxis Plan VTE Prophylaxis will be ordered: Yes Supervising Physician Co-Signing Physician Notes I personally saw and examined the patient. I independently reviewed the labs, EKG, imaging, problem list, medication list, past medical history and family history. I verified all brewer points and agree with Mario Amato PA-C with the following exceptions and/or additions: 39 year old male presents to the ER with shortness of breath and wheezing. 3 weeks of symptoms. Not improving on antibiotics, steroids or albuterol inhaler. Not using spacer with inhaler. O/E HS increased rate, regular rhythm, no murmurs, Chest mild expiratory wheeze, Abdo SNT A/P Reactive airway disease - prednisone + duonebs, consider follow up with pulmonology as outpatient, advised rest as he is planning on going to the [employer] this weekend and will likely exacerbate symptoms. PG Care Time/CCT Total # of Minutes Spent Total Time Spent with Patient: Total time spent is greater than 50% in coordination of care (as documented) at patient's floor/unit and/or counseling patient: C[place] [address] INT INP/OBS CARE 2/55MIN Patient Type Established Medical Decision Making Moderate Complexity Diagnoses Bronchitis J40 Tachycardia R00.0 Productive cough R05.8
[2024-07-03] MEDS ORDERED: ONDANSETRON INJ 2 MG/ML 2 ML VIAL IV PRN (19:00)
[2024-07-03] MEDS: LORazepam 0.5 MG TAB PO STA (20:19)
[2024-07-03] MEDS: ALBUT/IPRATROP 3MG/0.5MG NEB 3 ML VIAL ONE (22:02)
[2024-07-03] MEDS: ALBUT/IPRATROP 3MG/0.5MG NEB 3 ML VIAL NEB SCH (22:02)
[2024-07-03] MEDS: ACETAMINOPHEN 325 MG TAB PO PRN (22:17)
[2024-07-03] MEDS ORDERED: hydrOXYzine HCl 25 MG TAB PO PRN (22:17)
--- NOTE | 2024-07-04 07:23 | Hospitalist Progress Note ---
Date of Service July 04, 2024 Assessment & Plan (1) Bronchitis: Plan: Productive cough and raspy breathing x 3 weeks Failure of outpatient antibiotics/steroid taper Completed course of Levaquin, and close to completing course of Augmentin At the end of current steroid taper No h/o COPD or asthma to his knowledge Non-hypoxic on arrival; no reported fevers at home Mild leukocytosis at 11.97, in the setting of recent steroid taper BioFire negative CXR without acute findings Will defer further abx at this time Incentive spirometry, flutter valve Prednisone 40 mg p.o. QAM DuoNeb 3 mL q4h while awake Robitussin 10mL p.o. q6h as needed for cough Continuous pulse oximetry Recommend home neb available upon discharge follow-up with pulmonology (2) Tachycardia: Plan: Sinus tachycardic up to 110-115 BPM on arrival Chest CTA on arrival without pulmonary embolism Troponin WNL Suspect secondary to nebulizer treatment, steroids, and some anxiety about being in the hospital Continuous telemetry monitoring (3) Productive cough: Plan Disposition: Obs - admit to [facility] telemetry Full code Regular diet VTE PPx: Low risk, SCDs Admission and Anticipated Discharge Date Admission Date: July 03, 2024 Results & Data Results & Data Vital Signs (Past 12 Hours) Vital Signs Temp Pulse Pulse Resp BP Pulse Ox O2 Del Method 07/04/24 07:21 102 H 22 98 Room Air 07/04/24 05:46 70 07/04/24 03:06 97.7 F 99 H 18 113/80 98 Room Air 07/03/24 22:29 97.5 F L 98 H 18 125/78 94 Room Air 07/03/24 22:03 97 H 18 94 Room Air 07/03/24 21:57 110 H PG Care Time/CCT Total # of Minutes Spent Total Time Spent with Patient: Total time spent is greater than 50% in coordination of care (as documented) at patient's floor/unit and/or counseling patient: Coding Diagnoses Bronchitis J40 Tachycardia R00.0 Productive cough R05.8
[2024-07-04] MEDS: predniSONE 20 MG TAB PO SCH (08:02)
[2024-07-04 08:17] LABS: Basophils # (auto) 0.03 K/uL (0.00-0.20); Basophils % (auto) 0.2 %; Eosinophils # (auto) 0.03 K/uL (0.00-0.50); Eosinophils % (auto) 0.2 %; Hematocrit (blood only) 45.8 % (42.0-52.0); Hemoglobin 15.4 g/dl (14.0-18.0); Immature Granulocytes # (auto) 0.35 K/uL (0.01-0.20); Immature Granulocytes % (auto) 2.2 %; Lymphocytes # (auto) 1.64 K/uL (1.20-3.40); Lymphocytes % (auto) 10.1 %; Mean Corpuscular Hemoglobin 29.8 pg (25.0-34.0); Mean Corpuscular Hgb Conc 33.6 g/dL (32.0-36.0); Mean Corpuscular Volume 88.6 fL (80.0-100.0); Mean Platelet Volume 9.6 fL (9.4-12.4); Monocytes # (auto) 1.26 K/uL (0.11-0.59); Monocytes % (auto) 7.8 %; Neutrophils # (auto) 12.86 K/uL (1.40-6.50); Neutrophils % (auto) 79.5 %; Platelet Count 234 K/uL (130-400); RDW Coefficient of Variation 13.2 % (11.5-14.5); RDW Standard Deviation 42.8 fL (36.4-46.3); Red Blood Count 5.17 M/uL (4.70-6.10); White Blood Count 16.17 K/ul (4.8-10.8)
[2024-07-04 08:18] VITALS: RESP 20
[2024-07-04 08:44] LABS: BUN Creatinine Ratio 15.7 (10-20); Calcium 9.1 mg/dl (8.6-10.3); Potassium 3.6 mmol/L (3.5-5.1)
--- NOTE | 2024-07-04 09:25 | Electrocardiogram Report ---
Test Reason : Blood Pressure : */* mmHG Vent. Rate : 102 BPM Atrial Rate : 102 BPM P-R Int : 116 ms QRS Dur : 90 ms QT Int : 302 ms P-R-T Axes : 41 44 35 degrees QTcB Int : 393 ms Sinus tachycardia Minimal voltage criteria for LVH, may be normal variant Nonspecific T wave abnormality Abnormal ECG When compared with ECG of 02-Jun-2017 19:31, ST no longer elevated in Anterior leads Nonspecific T wave abnormality, worse in Inferior leads Nonspecific T wave abnormality now evident in Anterolateral leads Confirmed by West Steele ([id number]) on 07/04/2024 9:24:37 AM Referred By: Confirmed By: West Steele
--- NOTE | 2024-07-04 09:30 | Electrocardiogram Report ---
Test Reason : Blood Pressure : */* mmHG Vent. Rate : 88 BPM Atrial Rate : 88 BPM P-R Int : 120 ms QRS Dur : 84 ms QT Int : 324 ms P-R-T Axes : 65 64 42 degrees QTcB Int : 392 ms Normal sinus rhythm with sinus arrhythmia Minimal voltage criteria for LVH, may be normal variant Borderline ECG When compared with ECG of 03-Jul-2024 11:23, (unconfirmed) No significant change was found Confirmed by West Steele ([id number]) on 07/04/2024 9:30:00 AM Referred By: REFERRED SELF Confirmed By: West Steele
[2024-07-04] MEDS: KETOROLAC 30 MG/ML VIAL IV ONE (09:56)
[2024-07-04] MEDS ORDERED: ALBUT/IPRATROP 3MG/0.5MG NEB 3 ML VIAL NEB PRN (10:30)
[2024-07-04] MEDS ORDERED: ALBUT/IPRATROP 3MG/0.5MG NEB 3 ML VIAL NEB SCH (11:00)
[2024-07-04 12:10] VITALS: BP 158/101; PULSE 105; TEMP 97.9; O2SAT 96
[2024-07-04] MEDS ORDERED: IBUPROFEN 200 MG TAB PO PRN (16:00)
--- NOTE | 2024-07-04 17:49 | Discharge Summary ---
Discharge Summary Date of Service July 04, 2024 Principal Dx & Hospital Course #1 = Principal Diagnosis (1) Bronchitis: Productive cough and raspy breathing x 3 weeks Failure of outpatient antibiotics/steroid taper Completed course of Levaquin, and close to completing course of Augmentin No h/o COPD or asthma to his knowledge Non-hypoxic on arrival; no reported fevers at home BioFire negative CXR without acute findings CT chest without pneumonia Prednisone 40 mg with tapering dose at home plus completion of azithromycin for anti-inflammatory effects along Use antitussive medications [id number] (2) Tachycardia: resolved Chest CTA on arrival without pulmonary embolism Troponin WNL Plan pt improved, no pneumonia, will have home on steroid taper Admission HPI Per Admitting Provider Preet is a 39-year-old male with PMH of anxiety and recurrent nephrolithiasis. He presented on 07/03 at the behest of his PCP for ongoing respiratory symptoms and productive cough. Patient reports that he has had a horrible cough x 3 weeks. He endorses pleuritic chest pain at times secondary to cough. He reports that yesterday, and got worse and that is breathing became "raspy". He has been on multiple antibiotics outpatient: Completed a course of levofloxacin prescribed on 06/10, and close to completing Augmentin prescribed on 06/26 (patient reports he has 2 pills left). He also is at the end of his current steroid taper, and reports that the steroids helped significantly with his respiratory symptoms. He denies SOB at rest or with exertion. No orthopnea. No history of asthma or COPD to his knowledge. He does not have prior history of pulmonary issues. No family history of COPD to his knowledge. He denies smoking, tobacco use, recreational drug use, or recent alcohol use. He does admit he is around some secondhand smoke. 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 Patient has also been using an inhaler at home for his symptoms, which she received 3 weeks ago, but he reports this has not helped. He is also been taking Mucinex on occasion for his cough. His son also has a cough, but not to this extent. Patient is mildly hypertensive at 128/103 at time of admission; non-hypoxic; vitals otherwise stable. ED course: DuoNeb 3 mL DuoNeb 12 mL NSS 500 mL IV Acetaminophen 1000 mg IV Dexamethasone 10 mg IV ROS: Patient endorses dizziness (like the room was spinning; yesterday), mild BERNARDO, productive cough (dark green), and pleuritic CP. Patient denies fever, chills, night-sweats, falls, syncope, lightheadedness, sore throat, runny nose, chest pain at rest, SOB at rest or with exertion, orthopnea, hemoptysis, chest palpitations, abdominal pain, N/V/D, changes in urinary/bowel habits, blood in the urine/stool, or numbness/tingling in the arms of legs. Discharge Exam Awake alert appropriate. No coughing was heard during evaluation Lungs have some coarse rhonchi at the bases otherwise are clear Discharge Plan Discharge Items Patient Disposition: Home - Self-Care Reason For Visit: BRONCHITIS Discharge Diagnosis: bronchitis intractable cough Condition on Discharge: Good Activity: Resume your previous activity Non-emergency contact: Primary Care Provider Call non-emergency contact if: your symptoms worsen Follow-up/Referrals: PCP,NO [Primary Care Provider] - Diet: Regular Addtl Attending Provider Instructions: complete prednisone taper use cough medicine carefully Pending Studies at Discharge: No Stand-Alone Forms: My [facility] Dapt, Smoking Cessation Medications and DC Order Prescriptions: New azithromycin 250 mg tablet See Rx Instructions .ROUTE .COMPLEX Qty: 6 0RF Rx Instructions: For 250 mg dose pack: take 500 mg today (day 1), then 250 mg for 4 days (days 2-5) Continued ascorbic acid (vitamin C) [Vitamin C] 500 mg Tablet 500 mg PO DAILY PRN (Reason: Feeling sick/cold) Rx Instructions: Unable to verify OTC meds at this date/time. ibuprofen 200 mg Tablet 200 mg PO Q6H PRN (Reason: Pain) Rx Instructions: Unable to verify OTC meds at this date/time. albuterol sulfate 90 mcg/actuation HFA aerosol inhaler 2 puff inhalation UD PRN (Reason: shortness of breath or wheezing) Rx Instructions: Every 4-6 hours as needed Changed prednisone 10 mg tablet 10 mg PO UD Qty: 40 0RF Rx Instructions: 40 daily x4d->30mg daily x4d->20mg daily x4d-> 10 mg daily Discontinued amoxicillin-pot clavulanate 875-125 mg tablet 1 tab PO BID Rx Instructions: Start Date 06/26/24 x10 day supply Discharge Orders: Discharge Order (Routine); Ordered 07/04/24 Ordered By: Jon Roman Admission Data Admit Date/Time: 07/03/24 16:21 Attending Provider: Jon Roman Admit Provider: Cecil Dumont Primary Care Provider: PCP,NO Other Providers: Cecil Dumont Other Interventions: Discharge Summary Assessment (RN) Last Done: 07/04/24 11:15 Hospital Stay Data Consultations 07/03/24 16:30 ED Decision to Admit Stat Diagnostic Imagining Performed 07/03/24 13:25 CT angio chest PE protocol Stat Pending Results Patient Have Any Pending Studies at Discharge: No Discharge Instructions Given to Patient (Per Discharging Provider) complete prednisone taper use cough medicine carefully Total Time Total Time Spent Total Time Spent (In Minutes): It required greater than 30 minutes to prepare this patient for discharge. Coding Level of Care Code 05318 INP/OBS DISCH >30 MIN Diagnoses Bronchitis J40 Tachycardia R00.0
--- OUTSIDE RECORDS SUMMARY | 2024-07-05 00:20 | External Medical Summary | Continuity of Care Document ---
Author Name Unknown Organization [facility] [id number] [place] [phone] Care Team Providers Care Dough Molder Name Role Phone Anthony Garcia Primary Care Physician [phone] Encounter [facility] [id number] Date(s): 06/26/24 - 06/26/24 [facility] [address] [facility] [address] [place] [address], [address] [id number] [phone] Encounter Diagnosis Body mass index [BMI] 21.0-21.9, adult(Discharge Diagnosis) - 06/26/24 Cough with sputum(Discharge Diagnosis) - 06/26/24 Discharge Disposition: Home or Self Care Attending Physician: BOO Rojas Kimberly A Allergies, Adverse Reactions, Alerts No Known Allergies Assessment and Plan Extracted from: Title:Office Visit Note - APSO Author:LETICIA Rojas Kimberly A Date:06/26/24 1.Cough with sputum STATUS:Acute, uncomplicated illness/injury -Started about2-3weekswithasmall tickle -Has continued toworsen, prompting ER visit -Wastreated withaZpack andinhalerwith some benefit -Was alsoon amedrol dose pack, helpful while taking -Coughis productive withyellow sputum -Deniesany feverorchillsbutendorsesSOB DATA:Labs reviewed. GOAL:Maintain stability. PLAN:Cont current monitoring. Prednisone taper as directed Augmentin 875mg twice daily x 10 days Encouraged patient to rest, increase clear fluids, and wash hands frequently to avoid transmission.Recommended trying OTC saline nasal spray, salt water gargles, or Mucinex. Advised to return to the office if symptoms persist or worsen after 7-10 days, or if he develops a fever over 101 F, shortness of breath or wheezing. Immunizations Given and Recorded Vaccine Date Status Refusal Reason human papillomavirus vaccine 11/05/22 Given human papillomavirus vaccine 07/09/22 Given human papillomavirus vaccine 05/04/22 Given SARS-CoV-2 (COVID-19) mRNA-1273 vaccine 08/27/20 G iven tetanus/diphtheria/pertuss, acel (Tdap) 01/18/20 G iven Medications Albuterol (Eqv-ProAir HFA) 90 mcg/inh inhalation aerosol Start: 06/26/24 11:14:00 AM EST Start Date: 06/26/24 Status: Ordered Augmentin 875 mg-125 mg oral tablet Start: 06/26/24 11:49:00 AM EST, amoxicillin 1 tab, PO, q12h, Disp# 20, Pharmacy: [id number] Start Date: 06/26/24 Stop Date: 07/06/24 Status: Ordered predniSONE 10 mg oral tablet Start: 06/26/24 11:48:00 AM EST, See Instructions, Disp# 30 tab, 4 qd x 3, 3 qd x 3, 2 qd x 3, 1 qdx 3, Pharmacy: [id number] Start Date: 06/26/24 Status: Ordered sildenafil 25 mg oral tablet Start: 05/03/23 8:25:00 AM EDT, 1 tab, PO, Daily, Disp# 60 tab, Refills: 0, PRN: as needed for erectile dysfunction, Pharmacy: [id number] Start Date: 05/03/23 Status: Ordered Mental Status 06/26/24 Barriers to Learning one year None evide nt Mandatory Health Literacy Documentation Yes Health Literacy Communication Barriers N ever Primary Language Bruneian Problem List Condition Confirmation Course Effective Dates Status Health St atus Informant Anxiety Confirmed Active BPPV (benign paroxysmal positional vertigo) Confirmed Active Distal radial fracture Confirmed Active Genital warts Confirmed Active None Confirmed Active Diagnosis Diagnosis Type Effective Dates Health Status Cl inical Service Informant Cough with sputum Discharge Diagnosis 06/26/24 Non-Specified Body mass index [BMI] 21.0-21.9, adult Discharge Diagnosis 06/26/24 Non-Specified Procedures Procedure Date Related Diagnosis Body Site Status Lithotripsy 08/2022 Completed X-ray of left hand 1 06/09/20 Comp leted X-ray of left wrist 2 06/09/20 Com pleted 1No acute fracture 2Equivocal nondisplaced distal radial fracture. Repeat radiography in 10-14 days is recommended Vital Signs Most recent to oldest [Reference Range]: 1 Height 164 cm (06/26/24 11:17 AM) Patient Weight 59.1 kg (06/26/24 11:17 AM) Body Mass Index 21.97 kg/m2 (06/26/24 11:17 AM) Temperature [36.5-37.9 DegC] 36.6 DegC (06/26/24 11:17 AM) Heart Rate 95 bpm (06/26/24 11:17 AM) Respiratory Rate 18 br/min (06/26/24 11:17 AM) Blood Pressure 118/80mmHg (06/26/24 11:17 AM) Cuff Pulse Pressure 38 mmHg (06/26/24 11:17 AM) Social History Social History Type Response Smoking Status Never smoked cigaret kortney Sex Sex Representation Male (finding) FCM Outpt Note * BOO Rojas, Catarina Salazar: PERFORM Event Display: FCM Outpt Note Authored Date: Assessment/Plan 1.Cough with sputum STATUS:Acute, uncomplicated illness/injury -Started about2-3weekswithasmall tickle -Has continued toworsen, prompting ER visit -Wastreated withaZpack andinhalerwith some benefit -Was alsoon amedrol dose pack, helpful while taking -Coughis productive withyellow sputum -Deniesany feverorchillsbutendorsesSOB DATA:Labs reviewed. GOAL:Maintain stability. PLAN:Cont current monitoring. Prednisone taper as directed Augmentin 875mg twice daily x 10 days Encouraged patient to rest, increase clear fluids, and wash hands frequently to avoid transmission.Recommended trying OTC saline nasal spray, salt water gargles, or Mucinex. Advised to returnto the office if symptoms persist or worsen after 7-10 days, or if he develops a fever over 101 F, shortness of breath or wheezing. Chief Complaint Cough x 2 weeks. [facility] walk in- tx as bronchitis. Finished zpack and methylprednisone, using albuterol inhaler. History of Present Illness Patient is a 39yo male who presents today for acute visit for chronic cough Review of Systems ROS per HPI Physical Exam Vitals & Measurements T:36.6C HR:95(Monitored) RR:18 BP:118/80 SpO2:97% HT:164cm WT:59.1kg WT:59.100kg(Dosing) BMI:21.97 PHQ2 Data(Data Documented on:06/26/2024 11:14) Emotional health assessment NEGATIVE Gen Appearance: Well developed, well nourished female. Appears sick. Congested. HEENT: NCAT. PERRL. EOMI. Conjunctiva clear. Tympanic membranes are shiny with good light reflex. Not injected. External nose is with erythema. Turbinates are swollen and nares are withclear drainage bilaterally. Mild tenderness over maxillary sinuses bilterally. Neck: Supple. No thyromegaly palpable. Lymph: No submandibular, posterior or anterior cervical adenopathy. CV: Tachycardic. Regular rhythm. No murmurs, rubs, or gallops audible. No LE edema. Lungs: CTAB. No wheezing, rales or rhonchi. Chest rises symmetrically. Abdomen: Scaphoid. No rashes. NABSx4. Soft. Non-tender. No CVA tenderness bilaterally. No masses palpable. Ext: No LE edema. + 2 posterior tibial and dorsalis pedis pulses. Skin: Valentine. Supple. Good turgor. Problem List/Past Medical History Ongoing Anxiety BPPV (benign paroxysmal positional vertigo) Distal radial fracture Genital warts None Resolved Auditory vertigo Injury of wrist Orthostatic hypotension Viral URI Procedure/Surgical History Lithotripsy| Service Date: 08/2022X-ray of left hand| Service Date: 06/09/2020X-ray of left wrist| Service Date: 06/09/2020 Medications albuterol(Albuterol (Eqv-ProAir HFA) 90 mcg/inh inhalation aerosol) amoxicillin-clavulanate(Augmentin 875 mg-125 mg oral tablet), 1 tab, PO, q12h predniSONE(predniSONE 10 mg oral tablet), See Instructions sildenafil(sildenafil 25 mg oral tablet), 25 mg= 1 tab, PO, Daily, PRN Allergies NKA Social History Smoking Status Never smoked cigarettes Alcohol - Denies Alcohol Use Employment/School Status:Employed, Unemployed Description: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 Wears seatbelt in the car and he does not regularly use sun protection Nutrition/Health Type of diet:Regular Caffeine intake amount:Drinks 1 soda/day Other Details:Has not had a blood transfusion. Has tattoos that were done professionally w/ sterile equipment. Has not been incarcerated. Unsure if he's had HIV or hepatitis C testing. Sexual Sexually active:Yes Current partners:1 Self described orientation:Straight or heterosexual Substance Abuse - Denies Substance Abuse Tobacco - Denies Tobacco Use Family History Multiple sclerosis: Mother. Valvular heart disease: Father. Health Status Family Member(s) Sister: History is negative Immunizations Vaccine Date Status human papillomavirus vaccine 11/05/2022 Given human papillomavirus vaccine 07/09/2022 Given human papillomavirus vaccine 05/04/2022 Given SARS-CoV-2 (COVID-19) mRNA-1273 vaccine 08/27/2020 Given tetanus/diphtheria/pertuss, acel (Tdap) 01/18/2020 Given Recommendations Health Maintenance Pending(in the next year) OverDue Adult Influenza Vaccine due01/29/24and every 1year Due Adult COVID-19 Vaccination due06/26/24Unknown Frequency Adult Social Determinants of Health Screening due06/26/24Unknown Frequency Lipid Screening due06/26/24Unknown Frequency Satisfied(in the past 1 year) Satisfied Body Mass Index on06/26/24.Satisfied by KATHERINE Torre Vanessa T Electronic Signature on File Electronically Reviewed/Signed by: Catarina Rojas PA-C Author Signature Dt/Tm:06/26/2024 11:50 AM Department of Family [facility] Patient Care team information Care Team Personnel Name: MD Radha, Anthony Glaser Position: Physician - Family Med Member Role: Primary Care Provider Address: [address] [place] [address] [place] Care Team Related Persons Name: ORI VIVAR Name: LUZ ELENA VIVAR Name: JANETT VIVAR Name: MYAH VIVAR"
== END 2024-07-04 12:13 | disposition home or self-care (01) ==
LOC: 2N 11:09 → ED 11:09 → SUATTDRO 16:21 → 2N 17:56